=== PATIENT | female | born 1985 | race Caucasian/White ===

== ENCOUNTER 2025-05-26 16:24 | Emergency (ER) | payer BC, OTHER ==
[2025-05-26] MEDS ORDERED: Ketorolac Tromethamine 30 MG (1 mL) VIAL ONE (17:05)
== END 2025-05-26 17:25 | disposition home or self-care (01) ==
LOC: CSHERS 16:24
DX: S16.1XXA Strain of muscle, fascia and tendon at neck level, initial encounter (principal); S00.93XA Contusion of unspecified part of head, initial encounter; V89.2XXA Person injured in unspecified motor-vehicle accident, traffic, initial encounter
CPT/HCPCS: 96372; 99283; J1885